=== PATIENT | female | born 1975 | race Caucasian/White ===

== ENCOUNTER 2017-01-09 14:09 | Inpatient (IN) | payer BC, OTHER ==
[2017-01-09 14:18] VITALS: BMI 26.5
--- NOTE | 2017-01-09 15:01 | PDOC ---
History of Present Illness - General Chief Complaint: SIRS, Suspected/Possible Stated Complaint: ABD PAIN Time Seen by Provider: 01/09/17 14:33 History Source: Patient - History of Present Illness Initial Comments: 01/09/17 14:59 Patient is a 41 y.o. female with a PMH of PUD (H. pylori) who presents from her [employer]'s office where she was scheduled to have an endoscopy following concern for a fall. Patient states she woke up this morning at 4:45 a.m. and felt diaphoretic. Patient remembers going to the bathroom (chronic diarrhea) and she then walking into her hallway and her next memory is waking up in the hallway on the ground face down approximately 15 minutes later. Patient denies any pre-syncopal chest pain, shortness of breath, or lightheadedness only endorse the diaphoresis as previously noted. Patient further notes she was NPO from 8 p.m. yesterday and she had a light meal of cereal and milk as she was scheduled for an endoscopy later today. Patient notes dinner is her largest meal of the evening and she normally eats a much more caloric meal at night. Surgical: Cholecystectomy, Tubal Ligation, NKDA PMD: Dr. Hilario Conteh Social: denies cigarettes, denies alcohol, denies recreational drugs Past History - Past Medical History Allergies/Adverse Reactions: Allergies Allergy/AdvReac Type Severity Reaction Status Date / Time No Known Allergies Allergy Unverified 01/09/17 14:14 Home Medications: Ambulatory Orders NK [No Known Home Medication] 01/09/17 Other medical history: denies - Surgical History Abdominal Surgery: Yes (tumbaljeet walterck) Cholecystectomy: Yes - Immunization History Immunization Up to Date: Yes - Suicide/Smoking/Psychosocial Hx Smoking History: Never smoked Hx Alcohol Use: No Drug/Substance Use Hx: No Review of Systems - Review of Systems Constitutional: No: Chills, Fever HEENTM: No: Blurred Vision, Double Vision, Throat Pain Respiratory: No: Cough, Shortness of Breath Cardiac (ROS): No: Chest Pain ABD/GI: Yes: Diarrhea, Abdominal cramping. No: Constipated, Nausea, Vomiting : No: Burning, Dysuria All Other Systems: Reviewed and Negative *Physical Exam - Vital Signs Last Vital Signs Temp Pulse Resp BP Pulse Ox 103 F H 113 H 20 126/75 98 01/09/17 14:14 01/09/17 14:14 01/09/17 14:14 01/09/17 14:14 01/09/17 14:14 - Physical Exam General Appearance: Yes: Nourished, Appropriately Dressed Neck: positive: Supple Respiratory/Chest: positive: Lungs Clear, Normal Breath Sounds Cardiovascular: positive: Regular Rhythm, Regular Rate Gastrointestinal/Abdominal: positive: Tender (B/L LQ tenderness), Soft, Increased Bowel Sounds Musculoskeletal: negative: CVA Tenderness Integumentary: positive: Normal Color, Dry, Warm 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 female with a PMH of PUD (2/2 H. pylori) who presents falling an unwitnessed syncopal episode @ home with head trauma or LOC. Initial DDX is arrhythmia vs. hypoglycemia vs. neurologic. At presentation patient is SIRS 2/4 (Tachycardic 100's, Febrile @ 103). PLAN: 1. ED Adult Sepsis w/u including CBC, CMP, EKG, CXR, UA/UC 2. CT Head Reassess Head CT negative for acute intracranial pathology. As patient continues to c/o of abdominal pain with TTP in B/L lower abdominal quadrants + has h/o PUD, CT abdomen ordered. Patient's GI doctor, Dr. Ye, contacted, states no acute intervention tonight. Will do CT with contrast and evaluate tomorrow. Dr. Ye requests admission under Dr. Coppola. Patient's pain controlled and aware of plan. *DC/Admit/Observation/Transfer Diagnosis at time of Disposition: admitted
[2017-01-09] MEDS ORDERED: ACETAMINOPHEN 500 MG TABLET (FP) PO ONE (15:27)
[2017-01-09 15:48] LABS: BASOPHIL 0.1 % (0-2.0); MCH 31.4 pg (25.7-33.7); MCHC 35.6 g/dl (32.0-36.0); MEAN CELL VOLUME 88.4 fl (80-96); MEAN PLT VOLUME 10.3 fl (7.5-11.1); NEUTROPHILS 88.4 % (42.8-82.8); PLATELET COUNT 139 K/MM3 (134-434)
--- NOTE | 2017-01-09 16:00 | PDOC ---
Attending Attestation - Resident Resident Name: Kristen Samuels - ED Attending Attestation I have performed the following: I have examined & evaluated the patient, The case was reviewed & discussed with the resident, I agree w/resident's findings & plan, Exceptions are as noted - HPI HPI: 01/09/17 15:53 41yo F hx PUD presents from Dr. Ye's office (GI) after she reported a syncopal episode at home. Pt had a scheduled endoscopy today as a part of her work up for 4-5 weeks of chronic diarrhea. At her GI appointment, the staff noticed a bruise to her forehead and she reported that she had a 15 minute syncopal episode at home today. She states she was on her way to the bathroom at 445 and woke up face down on the floor at 5pm. Reports associated diaphoresis. Denies recent CP, palpitations, SOB, fevers, chills, abd pain, N/ V. Pt states she has been NPO since 8pm yesterday for endoscopy today. - Physicial Exam PE: 01/09/17 18:23 GENERAL: Awake, alert, and fully oriented, in no acute distress, febrile to 103 HEAD: No signs of trauma EYES: PERRLA, EOMI, sclera anicteric, conjunctiva clear ENT: Auricles normal inspection, hearing grossly normal, nares patent, oropharynx clear without exudates. dry MM NECK: Normal ROM, supple, no lymphadenopathy, JVD, or masses LUNGS: Breath sounds equal, clear to auscultation bilaterally. No wheezes, and no crackles HEART: tachy 115 but regular, normal S1 and S2, no murmurs, rubs or gallops ABDOMEN: Soft, nontender, normoactive bowel sounds. No guarding, no rebound. No masses EXTREMITIES: Normal range of motion, no edema. No clubbing or cyanosis. No cords, erythema, or tenderness NEUROLOGICAL: Normal speech, cranial nerves intact, negative pronator drift, 5/ 5 strength in all 4 extremities, normal sensation to light touch in all 4 extremities, normal cerebellar exam, normal gait, normal reflexes and tone SKIN: Warm, Dry, normal turgor, no rashes or lesions noted. - Medical Decision Making 01/09/17 18:27 41-year-old female presents with 15 minutes of syncope at home with head strike. Vitals remarkable for temp 103 and tachycardia to 115.Exam with dry MM. Syncope is concerning given a long period of loss of consciousness. Possible causes are hypovolemia versus infection as patient is febrile and tachycardic here versus cardiac in etiology. -labs -IVF -tylenol -CTH -likely admit Heart Score/ECG Review #1 01/09/17 18:15 Twelve-lead EKG was performed and reviewed by me. Normal sinus rhythm, rate 82, normal axis and intervals. No ST elevations. T wave flattening in lead 3
[2017-01-09 16:04] LABS: ALBUMIN 3.9 g/dl (3.4-5.0); ANION GAP 11 (8-16); BILIRUBIN,TOTAL 1.3 mg/dL (0.2-1.0); CALCIUM 8.3 mg/dL (8.5-10.1); CO2 25 mmol/L (21-32); CREATININE 0.6 mg/dL (0.55-1.02); GLUCOSE,RANDOM 117 mg/dL (74-106); SGOT/AST 109 U/L (15-37); SGPT/ALT 88 U/L (12-78); TOT PROT 7.3 g/dl (6.4-8.2)
[2017-01-09 16:05] LABS: ALK PHOS 108 U/L (45-117); CPK 58 IU/L (26-192)
[2017-01-09 16:06] LABS: TROPONIN I < 0.02 ng/ml (0.00-0.05)
[2017-01-09 16:12] LABS: INR 1.19 (0.82-1.09); PROTHROMBIN TIME (PATIENT) 13.5 SEC (9.98-11.88)
[2017-01-09 16:15] LABS: ACTIVATED PTT 26.4 SECONDS (26.9-34.4)
[2017-01-09 16:23] LABS: VENOUS PH 7.44 (7.32-7.42)
[2017-01-09] MEDS ORDERED: POTASSIUM CHLORIDE TABS 20 MEQ TABLET.ER (FP) PO ONE ×2 (16:23→16:29)
[2017-01-09] MEDS ORDERED: SODIUM CHLORIDE 0.9% 1000 ML INFUS.BAG IV ONE (18:27)
[2017-01-09 20:58] LABS: URINE APPEARANCE CLEAR; URINE BILIRUBIN NEGATIVE (NEGATIVE); URINE BLOOD NEGATIVE (NEGATIVE); URINE COLOR LTYELLOW; URINE GLUCOSE (UA) NEGATIVE (NEGATIVE); URINE KETONE 2+ (NEGATIVE); URINE NITRITE NEGATIVE (NEGATIVE); URINE PROTEIN NEGATIVE (NEGATIVE); URINE UROBILINOGEN NEGATIVE mg/dL (0.2-1.0)
[2017-01-09] MEDS ORDERED: ACETAMINOPHEN 1000 MG/100 ML VIAL (NON FORMULARY) IVPB ONE (22:18)
[2017-01-09] MEDS ORDERED: morphine CARPU-JECT 2 MG/1 ML DISP.SYRIN IM ONE (22:19)
[2017-01-09] MEDS ORDERED: morphine CARPU-JECT 2 MG/1 ML DISP.SYRIN IVPUSH ONE (22:25)
[2017-01-09] MEDS ORDERED: morphine CARPU-JECT 2 MG/1 ML DISP.SYRIN ONE (22:28)
[2017-01-10] MEDS ORDERED: ACETAMINOPHEN 325 MG TABLET (FP) ONE (00:03)
[2017-01-10] MEDS ORDERED: ACETAMINOPHEN 325 MG TABLET (FP) PO ONE (00:09)
[2017-01-10] MEDS ORDERED: morphine CARPU-JECT 2 MG/1 ML DISP.SYRIN IVPB PRN (02:22)
[2017-01-10] MEDS ORDERED: LEVOFLOXACIN 500 MG IVPB 100 ML IVPB ONE (02:30)
[2017-01-10] MEDS: D5-1/2NS+20 MEQ KCL - 1,000 ML IV SCH ×2 (02:40→16:30)
[2017-01-10 08:02] LABS: MCH 30.9 pg (25.7-33.7); MEAN CELL VOLUME 88.3 fl (80-96); MEAN PLT VOLUME 9.8 fl (7.5-11.1); PLATELET COUNT 103 K/MM3 (134-434); RDW 12.9 % (11.6-15.6); WHITE BLOOD COUNT 7.1 K/mm3 (4.0-10.0)
[2017-01-10 08:47] LABS: ALBUMIN 3.3 g/dl (3.4-5.0); ANION GAP 7 (8-16); CALCIUM 7.8 mg/dL (8.5-10.1); CO2 29 mmol/L (21-32); CREATININE 0.5 mg/dL (0.55-1.02); GLUCOSE,RANDOM 117 mg/dL (74-106); SGOT/AST 77 U/L (15-37); SGPT/ALT 86 U/L (12-78)
[2017-01-10 08:51] LABS: ALK PHOS 90 U/L (45-117); BILIRUBIN,TOTAL 1.2 mg/dL (0.2-1.0); TOT PROT 6.4 g/dl (6.4-8.2)
[2017-01-10 11:14] LABS: URINE LEUK ESTERASE Negative (NEGATIVE)
[2017-01-10] MEDS: KCL 10 MEQ IVPB 100 ML IVPB SCH ×2 (12:29→14:00)
--- NOTE | 2017-01-10 12:47 | EKG ---
Test Reason : Blood Pressure : / mmHG Vent. Rate : 082 BPM Atrial Rate : 082 BPM P-R Int : 160 ms QRS Dur : 086 ms QT Int : 396 ms P-R-T Axes : 048 052 032 degrees QTc Int : 462 ms NORMAL SINUS RHYTHM NORMAL ECG NO PREVIOUS ECGS AVAILABLE Confirmed by ROLAN MAJOR MD ([id number]) on 01/10/2017 12:46:58 PM Referred By: Confirmed By:ROLAN MAJOR MD
--- NOTE | 2017-01-10 13:27 | RAPID ---
Physical Examination Vital Signs: Vital Signs Temperature 98.6 F 01/10/17 09:23 Pulse Rate 75 01/10/17 09:23 Respiratory Rate 18 01/10/17 09:23 Blood Pressure 107/62 01/10/17 09:23 O2 Sat by Pulse Oximetry (%) 99 01/10/17 10:00 Findings/Remarks: Was called to the bed side by Cydney ann. Patient was found in bed complaining of new onset "weird feelings in my body" as per nurse, patient was on her way back from the bathroom when she began to complain of generalized weakness and slurred speech. Dr. Villalobos at bedside. Patient was found to have no focal neurological deficits. Strength 5/5 in all 4 limbs. Questionable pronator drift on the right. -NIH stroke scale score of 1. -STAT non-con CT of the head ordered and returned negative. -Will order MRI brain w/o contrast. -STAT BMP, magnesium ordered as the patient had electrolyte disturbances this AM -Will follow up stat labs and CT. Constitutional: Yes: Well Nourished, Anxious, Mild Distress Eyes: Yes: Conjunctiva Clear, EOM Intact HENT: Yes: Atraumatic, Normocephalic Neck: Yes: Supple, Trachea Midline Cardiovascular: Yes: Regular Rate and Rhythm, S1, S2. No: JVD, Gallop, Murmur, Rub Respiratory: Yes: Regular, CTA Bilaterally. No: Accessory Muscle Use Neurological: Yes: Alert, Oriented, Cran Nerves II-XII Intact. No: Aphasia, Dysarthria, Facial Droop, Loss of Sensation ...Motor Strength: LUE (5/5), LLE (5/5), RUE (5/5), RLE (5/5) Labs: CBC, BMP 01/10/17 06:00 01/10/17 06:00 Suspected CVA - Suspected CVA Exam Time (Code Ann Time): 01:15 CT Stroke ordered: Yes Stat "Cydney Ann" Consult to Neurology called: Yes Last Known Well (Date): 01/10/17 Last Known Well (Time): 01:00 Symptom Discovery (Date): 01/10/17 Symptom Discovery (Time): 01:10
--- NOTE | 2017-01-10 13:36 | HP ---
Admitting History and Physical - Primary Care Physician PCP: Hilario Rodgers - Admission History of Present Illness: Patient is a 41 y.o. female with a PMH of PUD (H. pylori) who presents from her Pharmacometrician's office -- Dr. Howell--where she was scheduled to have an endoscopy following concern for a fall. Patient states she woke up this morning at 4:45 a.m. and felt diaphoretic. Patient remembers going to the bathroom (chronic diarrhea) and she then walking into her hallway and her next memory is waking up in the hallway on the ground face down approximately 15 minutes later. Patient denies any pre-syncopal chest pain, shortness of breath , or lightheadedness only endorse the diaphoresis as previously noted. Patient further notes she was NPO from 8 p.m. yesterday and she had a light meal of cereal and milk as she was scheduled for an endoscopy later today. Patient notes dinner is her largest meal of the evening and she normally eats a much more caloric meal at night. Surgical: Cholecystectomy, Tubal Ligation, NKDA PMD: Dr. Hilario Conteh Social: denies cigarettes, denies alcohol, denies recreational drugs pt admitted to floor pt had fever of 103 last night -- given levaquin x 1 dose pt also had rapid response earlier today - after starting kcl pt feels better now denies cp/sob +ve diarhea +ve abd pain anxiety + denies urinary burning History Source: Patient Limitations to Obtaining History: No Limitations - Past Medical History ...: No - Smoking History Smoking history: Never smoked - Alcohol/Substance Use Hx Alcohol Use: No Home Medications - Allergies Allergies/Adverse Reactions: Allergies Allergy/AdvReac Type Severity Reaction Status Date / Time No Known Allergies Allergy Unverified 01/09/17 14:14 - Home Medications Home Medications: Ambulatory Orders NK [No Known Home Medication] 01/09/17 Family Disease History - Family Disease History Family History: Unremarkable Review of Systems Findings/Remarks: see [place] Physical Examination Vital Signs: Vital Signs Temperature 98.6 F 01/10/17 09:23 Pulse Rate 75 01/10/17 09:23 Respiratory Rate 18 01/10/17 09:23 Blood Pressure 107/62 01/10/17 09:23 O2 Sat by Pulse Oximetry (%) 99 01/10/17 10:00 Constitutional: Yes: No Distress, Calm Eyes: Yes: WNL, Conjunctiva Clear HENT: Yes: WNL Neck: Yes: Supple Cardiovascular: Yes: Regular Rate and Rhythm Respiratory: Yes: CTA Bilaterally Gastrointestinal: Yes: Soft, Tenderness (mild diffuse. no r/r bs +) Labs: CBC, BMP 01/10/17 06:00 01/10/17 06:00 Imaging - Results Chest X-ray: Report Reviewed Cat Scan: Report Reviewed EKG: Report Reviewed Problem List - Problems (1) Abdominal pain Code(s): R10.9 - UNSPECIFIED ABDOMINAL PAIN (2) Colitis Code(s): K52.9 - NONINFECTIVE GASTROENTERITIS AND COLITIS, UNSPECIFIED (3) Need for rapid response team assessment Code(s): [id number] - (4) Acute anxiety Code(s): F41.9 - ANXIETY DISORDER, UNSPECIFIED (5) Diarrhea Code(s): R19.7 - DIARRHEA, UNSPECIFIED (6) Thrombocytopenia Code(s): D69.6 - THROMBOCYTOPENIA, UNSPECIFIED Assessment/Plan clinically stable discussed with Dr. Howell-- he will evaluate and decide if to continue abx continue present care scd hold heparin for dvt prophylaxis- as platelets are low. monitor . will follow
--- NOTE | 2017-01-10 13:49 | CONSULT ---
Consult - text type - Consultation Consultation Note: Neurology History of Present Illness Patient is a 41 y.o. female with a PMH of PUD (H. pylori) who presents from her Clinical Trial Specialist's office where she was scheduled to have an endoscopy following concern for a fall. Patient states she woke up morning of admission at 4:45 a.m. and felt diaphoretic. Patient remembers going to the bathroom ( chronic diarrhea) and admitted for evaluation. At approximately 1:15 over head page for code bartlett/stroke emegency and went to bedside immediately along with rapid response team. Reportedly had bed complaining was on her way back from the bathroom when she began to complain of generalized weakness and slurred speech. During my evaluation was feeling "weird feelings in my body". Patient was found to have no focal neurological deficits. Strength 5/5 in all 4 limbs. Questionable Pronator drift on the right. Did not appreciate slurred speech. Patient went for emergent CT head negative. Results reviewed with patient, no acute changes. Not given TPA as low NIHSS also no focal deficits. MRI brain ordered, symptoms resolving and patient at baseline. Believed to be possibly metabolic and medical management occuring. Spoke with PCP and hospitalist. All in agreement. Surgical: Cholecystectomy, Tubal Ligation, NKDA PMD: Dr. Hilario Conteh Social: denies cigarettes, denies alcohol, denies recreational drugs Past History - Past Medical History Allergies/Adverse Reactions: Allergies Allergy/AdvReac Type Severity Reaction Status Date / Time No Known Allergies Allergy Unverified 01/09/17 14:14 Active Medications Potassium Chloride/Dextrose/Sod Cl (D5-1/2ns+20 Meq Kcl -) 1,000 mls @ 100 mls/ hr IV ASDIR NIEVES Last Admin: 01/10/17 02:40 Dose: 100 mls/hr Potassium Chloride (Potassium Chloride 10 Meq Premix Ivpb -) 100 mls @ 100 mls/ hr IVPB Q60M [facility] Stop: 01/10/17 14:14 Last Admin: 01/10/17 12:29 Dose: 100 mls/hr Morphine Sulfate (Morphine Injection -) 1 mg IVPB Q4H PRN PRN Reason: PAIN Last Admin: 01/10/17 08:19 Dose: 1 mg Other medical history: denies - Surgical History Abdominal Surgery: Yes (tummy tuck) Cholecystectomy: Yes - Immunization History Immunization Up to Date: Yes - Suicide/Smoking/Psychosocial Hx Smoking History: Never smoked Hx Alcohol Use: No Drug/Substance Use Hx: No *Physical Exam - Vital Signs Last Vital Signs Temp Pulse Resp BP Pulse Ox 103 F H 113 H 20 126/75 98 01/09/17 14:14 01/09/17 14:14 01/09/17 14:14 01/09/17 14:14 01/09/17 14:14 AWake, alert, responsive RRR, no murmur Lungs clear Abd soft, slightly tender CN intact No slurred speech Sensory intact Motor 5/5 aside from ? drift of RUE Gait deferred CBCD WBC 7.1 K/mm3 (4.0-10.0) 01/10/17 06:00 RBC 4.10 M/mm3 (3.60-5.2) 01/10/17 06:00 Hgb 12.7 GM/dL (10.7-15.3) 01/10/17 06:00 Hct 36.2 % (32.4-45.2) 01/10/17 06:00 MCV 88.3 fl (80-96) 01/10/17 06:00 MCHC 35.0 g/dl (32.0-36.0) 01/10/17 06:00 RDW 12.9 % (11.6-15.6) 01/10/17 06:00 Plt Count 103 K/MM3 (134-434) L D 01/10/17 06:00 MPV 9.8 fl (7.5-11.1) 01/10/17 06:00 CMP Sodium 138 mmol/L (136-145) 01/10/17 06:00 Potassium 3.1 mmol/L (3.5-5.1) L 01/10/17 06:00 Chloride 102 mmol/L (98-107) 01/10/17 06:00 Carbon Dioxide 29 mmol/L (21-32) 01/10/17 06:00 Anion Gap 7 (8-16) L 01/10/17 06:00 BUN 5 mg/dL (7-18) L D 01/10/17 06:00 Creatinine 0.5 mg/dL (0.55-1.02) L 01/10/17 06:00 Creat Clearance w eGFR > 60 (>60) 01/10/17 06:00 Calcium 7.8 mg/dL (8.5-10.1) L 01/10/17 06:00 Total Bilirubin 1.2 mg/dL (0.2-1.0) H 01/10/17 06:00 AST 77 U/L (15-37) H D 01/10/17 06:00 ALT 86 U/L (12-78) H 01/10/17 06:00 Alkaline Phosphatase 90 U/L (45-117) 01/10/17 06:00 Total Protein 6.4 g/dl (6.4-8.2) 01/10/17 06:00 Albumin 3.3 g/dl (3.4-5.0) L 01/10/17 06:00 - RADIOLOGY CT head negative X 2 Medical Decision Making 41 y.o. female with a PMH of PUD (H. pylori) who presents from her Clinical Trial Specialist's office where she was scheduled to have an endoscopy following concern for a fall. Patient states she woke up morning of admission at 4:45 a.m. and felt diaphoretic. Patient remembers going to the bathroom ( chronic diarrhea) and admitted for evaluation. At approximately 1:15 over head page for code bartlett/stroke emegency and went to bedside immediately along with rapid response team. Reportedly had bed complaining was on her way back from the bathroom when she began to complain of generalized weakness and slurred speech. During my evaluation was feeling "weird feelings in my body". Patient was found to have no focal neurological deficits. Strength 5/5 in all 4 limbs. Questionable Pronator drift on the right. Did not appreciate slurred speech. Patient went for emergent CT head negative. Results reviewed with patient, no acute changes. MRI brain ordered, symptoms resolving and patient at baseline. Believed to be possibly metabolic and medical management occurring. Spoke with PCP and hospitalist. All in agreement. Critical care time 40 mins
[2017-01-10 15:16] LABS: ANION GAP 6 (8-16); CALCIUM 7.9 mg/dL (8.5-10.1); CO2 27 mmol/L (21-32); CREATININE 0.5 mg/dL (0.55-1.02); GLUCOSE,RANDOM 93 mg/dL (74-106); MAGNESIUM 2.3 mg/dL (1.8-2.4)
--- NOTE | 2017-01-10 17:00 | CON.GI ---
Consult Consult Specialty:: GI Referred by:: Dr Coppola Reason for Consultation:: colitis - History of Present Illness Chief Complaint: syncope History of Present Illness: 41 F with no PMH seen as opt with UGI complaints, scheduled for EGD. Came to office for procedure yesterday and was noted to have ecchymosis over R eye with orbital ecchymosis as well. She told me that she had lower abdominal pain that morning and went to the bathroom where she states she had diarrhea and vomiting. up9on arising she had a syncopal episode which lasted a few minutes. She states she "woke up on the floor next to her dog." Curently comfortable. States eating precipitates the pain. CT done without contrast of little value. Suggests mild thickening of the entire colon. Earlier today she was given a potassium infusion and developed severe hand cramping and facial and body numbness prompting a codee ca. She had CT that was negative, neuro eval negative and is now going for MRI of brain. - History Source History Provided By: Patient, Medical Record Limitations to Obtaining History: No Limitations - Past Medical History ...: No - Alcohol/Substance Use Hx Alcohol Use: No - Smoking History Smoking history: Never smoked Home Medications - Allergies Allergies/Adverse Reactions: Allergies Allergy/AdvReac Type Severity Reaction Status Date / Time No Known Allergies Allergy Unverified 01/09/17 14:14 - Home Medications Home Medications: Ambulatory Orders NK [No Known Home Medication] 01/09/17 Physical Exam-GI Vital Signs: Vital Signs Temperature 98.9 F 01/10/17 15:32 Pulse Rate 82 01/10/17 15:32 Respiratory Rate 18 01/10/17 15:32 Blood Pressure 118/69 01/10/17 15:32 O2 Sat by Pulse Oximetry (%) 99 01/10/17 10:00 Constitutional: Yes: Well Nourished, No Distress, Anxious Cardiovascular: Yes: Regular Rate and Rhythm Respiratory: Yes: Regular, CTA Bilaterally Gastrointestinal Inspection: Yes: WNL ...Auscultate: Yes: Normoactive Bowel Sounds ...Palpate: Yes: Soft, Tenderness (mild, mid-abdominal) ...Percussion: Yes: Dullness Neurological: Yes: WNL, Oriented. No: Confusion, Loss of Sensation, Numbness, Weakness (No focal findings) Labs: CBC, BMP 01/10/17 06:00 01/10/17 14:25 INR, PTT INR 1.19 (0.82-1.09) H 01/09/17 15:25 Hepatic Panel Total Bilirubin 1.2 mg/dL (0.2-1.0) H 01/10/17 06:00 AST 77 U/L (15-37) H D 01/10/17 06:00 ALT 86 U/L (12-78) H 01/10/17 06:00 Alkaline Phosphatase 90 U/L (45-117) 01/10/17 06:00 Albumin 3.3 g/dl (3.4-5.0) L 01/10/17 06:00 Imaging - Results Cat Scan: Report Reviewed (diffuse thickening of entire colon with no fluid, stranding or) Assessment/Plan Patient with unusual constellation of symptoms. When seen as opt, she was having intermittent constipation. Fever on admission but no leukocytosis. However, L shift and now thrombocytopenia. Rec: CTA to r/o ischemic issue. She describes intestinal angina. Check sed rate, CPK, myoglobin and JAYMIE. ? vasculitis muscle cramps likely secondary to low K. Check ionized Ca as hand and facial muscle contractions suggest low Ca
[2017-01-10] MEDS ORDERED: ACETAMINOPHEN 325 MG TABLET (FP) PO PRN (17:04)
[2017-01-10] MEDS ORDERED: morphine CARPU-JECT 2 MG/1 ML DISP.SYRIN IVPUSH PRN (17:14)
[2017-01-10] MEDS ORDERED: LEVOFLOXACIN 500 MG IVPB 100 ML IVPB SCH (17:15)
[2017-01-11 08:26] LABS: BASOPHIL 0.4 % (0-2.0); EOSINOPHIL 1.6 % (0-4.5); MCH 30.5 pg (25.7-33.7); MCHC 34.4 g/dl (32.0-36.0); MEAN CELL VOLUME 88.9 fl (80-96); MEAN PLT VOLUME 10.3 fl (7.5-11.1); NEUTROPHILS 60.4 % (42.8-82.8); PLATELET COUNT 132 K/MM3 (134-434); WHITE BLOOD COUNT 4.6 K/mm3 (4.0-10.0)
[2017-01-11 08:59] LABS: ALBUMIN 3.2 g/dl (3.4-5.0); ANION GAP 7 (8-16); BILIRUBIN,TOTAL 0.6 mg/dL (0.2-1.0); CALCIUM 7.9 mg/dL (8.5-10.1); CO2 27 mmol/L (21-32); CREATININE 0.5 mg/dL (0.55-1.02); GLUCOSE,RANDOM 110 mg/dL (74-106); SGOT/AST 38 U/L (15-37); SGPT/ALT 62 U/L (12-78); TOT PROT 6.3 g/dl (6.4-8.2)
[2017-01-11 09:00] LABS: ALK PHOS 83 U/L (45-117)
--- NOTE | 2017-01-11 12:47 | PN ---
Progress Note (short form) - Note Progress Note: feels better diarrhea persists abd discomfort + afebrile comfortable gi consult noted/ appreciated Vital Signs Temp 98.1 F 01/11/17 09:36 Pulse 67 01/11/17 09:36 Resp 18 01/11/17 09:36 BP 110/66 01/11/17 09:36 Pulse Ox 99 01/11/17 10:00 Intake & Output 01/10/17 01/11/17 01/11/17 23:59 11:59 23:59 Intake Total 1100 1100 Balance 1100 1100 Intake: IV 1000 1100 D5-1/2Ns+20 Meq KCl - 1, 1000 1100 000 ml @ 100 mls/hr IV ASDIR NIEVES Rx#:[id number] IVPB 100 Oral 0 0 Other: Voiding Method Toilet Toilet # Unmeasured Voids Void 3 2 Bowel Movement Yes No # Bowel Movements 3 3 Active Medications Acetaminophen (Tylenol -) 650 mg PO Q6H PRN PRN Reason: FEVER OR PAIN Last Admin: 01/10/17 17:51 Dose: 650 mg Levofloxacin (Levaquin 500 Mg Premixed Ivpb -) 100 mls @ 100 mls/hr IVPB ONCE NIEVES Stop: 01/11/17 17:14 Last Admin: 01/10/17 17:51 Dose: 100 mls/hr Potassium Chloride/Dextrose/Sod Cl (D5-1/2ns+20 Meq Kcl -) 1,000 mls @ 100 mls/ hr IV ASDIR NIEVES Morphine Sulfate (Morphine Injection -) 1 mg IVPB Q4H PRN PRN Reason: PAIN Last Admin: 01/10/17 08:19 Dose: 1 mg Morphine Sulfate (Morphine Injection -) 1 mg IVPUSH Q4H PRN PRN Reason: PAIN CBC, BMP 01/11/17 07:40 01/11/17 07:40 Microbiology 01/09/17 15:25 Urine Culture - Final Urine - Urine Clean Catch NO GROWTH OBTAINED 01/09/17 14:49 Blood Culture - Preliminary Blood - Peripheral Venous NO GROWTH OBTAINED AFTER 24 HOURS, INCUBATION TO CONTINUE FOR 4 DAYS. 01/09/17 14:49 Blood Culture - Preliminary Blood - Peripheral Venous NO GROWTH OBTAINED AFTER 24 HOURS, INCUBATION TO CONTINUE FOR 4 DAYS. 01/10/17 13:00 Clostridium difficile Antigen (HUMA) - Final Stool Clostridium difficile Toxin Assay - Final Physical Examination Constitutional: Yes: No Distress, Calm Eyes: Yes: WNL, Conjunctiva Clear HENT: Yes: WNL Neck: Yes: Supple Cardiovascular: Yes: Regular Rate and Rhythm Respiratory: Yes: CTA Bilaterally Gastrointestinal: Yes: Soft, Tenderness (mild diffuse. no r/r bs +)-- better Problem List - Problems (1) Abdominal pain Code(s): R10.9 - UNSPECIFIED ABDOMINAL PAIN (2) Colitis Code(s): K52.9 - NONINFECTIVE GASTROENTERITIS AND COLITIS, UNSPECIFIED (3) Need for rapid response team assessment Code(s): [id number] - (4) Acute anxiety Code(s): F41.9 - ANXIETY DISORDER, UNSPECIFIED (5) Diarrhea Code(s): R19.7 - DIARRHEA, UNSPECIFIED Assessment/Plan clinically stable/ better discussed with Dr. Howell-again today - plan for sigmoidoscopy tomorrow cta -ve except thickened colon. observe off abx continue present care scd platlets better monitor . will follow
--- NOTE | 2017-01-11 14:34 | PN ---
GI Progress Note Subjective: Patient now with colitislike symptoms. Abdominal pain just prior to BM with tenesmus, and passing small liquid BM. CTA reviewed-no vascular compromise but again, thickened colon throughout. - Objective Vital Signs: Vital Signs Temperature 98.1 F 01/11/17 09:36 Pulse Rate 67 01/11/17 09:36 Respiratory Rate 18 01/11/17 09:36 Blood Pressure 110/66 01/11/17 09:36 O2 Sat by Pulse Oximetry (%) 99 01/11/17 10:00 Constitutional: Well Nourished HENT: Yes: Normocephalic Neck: Yes: Supple Cardiovascular: Yes: Regular Rate and Rhythm Respiratory: Yes: CTA Bilaterally Gastrointestinal Inspection: Yes: WNL ...Auscultate: Yes: Normoactive Bowel Sounds ...Palpate: Yes: Soft, Tenderness (L/RLQ primarily) ...Percussion: Yes: Dullness Labs: CBC, BMP 01/11/17 07:40 01/11/17 07:40 INR, PTT INR 1.19 (0.82-1.09) H 01/09/17 15:25 - ....Imaging Cat Scan: Report Reviewed (No vascular issue. Colitis-like picture) Assessment/Plan Patient with unusual constellation of symptoms. When seen as opt, she was having intermittent constipation. Fever on admission but no leukocytosis. However, L shift and now thrombocytopenia. Rec: CTA to r/o ischemic issue negative CRP 7.8 muscle cramps likely secondary to low K. ionized Ca P CPK normal Flex sig tomorrow-time to be determined.
[2017-01-11] MEDS: D5-1/2NS+20 MEQ KCL - 1,000 ML IV SCH (17:22)
[2017-01-12] MEDS: D5-1/2NS+20 MEQ KCL - 1,000 ML IV SCH ×2 (07:15→18:45)
[2017-01-12] MEDS ORDERED: LIDOCAINE HCL/PF 2% SDV 5ML VIAL ONE (08:54)
[2017-01-12] MEDS ORDERED: PROPOFOL 20 ML ONE ×2 (08:54)
--- NOTE | 2017-01-12 09:45 | PN ---
Progress Note (short form) - Note Progress Note: ADDENDUM: Mild patchy colitis throughout the colon. Scope passed to the ascending colon. Resume diet-low residue Await biopsy results FF
--- NOTE | 2017-01-12 10:17 | PN ---
Progress Note (short form) - Note Progress Note: Neurology History of Present Illness Patient is a 41 y.o. female with a PMH of PUD (H. pylori) who presents from her [employer]'s office where she was scheduled to have an endoscopy following concern for a fall. Patient states she woke up morning of admission at 4:45 a.m. and felt diaphoretic. Patient remembers going to the bathroom ( chronic diarrhea) and admitted for evaluation. On thursday, approximately 1: 15pm over head page for code bartlett/stroke emegency and went to bedside immediately along with rapid response team. Reportedly had bed complaining was on her way back from the bathroom when she began to complain of generalized weakness and slurred speech. During my evaluation was feeling "weird feelings in my body". Patient was found to have no focal neurological deficits. Strength 5/5 in all 4 limbs. Questionable Pronator drift on the right. Did not appreciate slurred speech. Patient went for emergent CT head negative. Not given TPA as low NIHSS also no focal deficits. Symptoms resolved. MRI brain completed and reviewed and without acute changes. Believed to be possibly metabolic and medical management occuring. Active Medications Acetaminophen (Tylenol -) 650 mg PO Q6H PRN PRN Reason: FEVER OR PAIN Last Admin: 01/10/17 17:51 Dose: 650 mg Potassium Chloride/Dextrose/Sod Cl (D5-1/2ns+20 Meq Kcl -) 1,000 mls @ 100 mls/ hr IV ASDIR NIEVES Last Admin: 01/12/17 07:15 Dose: Not Given Morphine Sulfate (Morphine Injection -) 1 mg IVPB Q4H PRN PRN Reason: PAIN Last Admin: 01/10/17 08:19 Dose: 1 mg Morphine Sulfate (Morphine Injection -) 1 mg IVPUSH Q4H PRN PRN Reason: PAIN *Physical Exam Vital Signs Period Temp Pulse Resp BP Sys/Al Pulse Ox Last 24 Hr 97.7 F-98.4 F 61-68 18-20 89-117/51-66 98-99 AWake, alert, responsive RRR, no murmur Lungs clear Abd soft, slightly tender CN intact No slurred speech Sensory intact Motor 5/5 aside from ? drift of RUE Gait deferred CBCD WBC 4.6 K/mm3 (4.0-10.0) D 01/11/17 07:40 RBC 4.07 M/mm3 (3.60-5.2) 01/11/17 07:40 Hgb 12.4 GM/dL (10.7-15.3) 01/11/17 07:40 Hct 36.1 % (32.4-45.2) 01/11/17 07:40 MCV 88.9 fl (80-96) 01/11/17 07:40 MCHC 34.4 g/dl (32.0-36.0) 01/11/17 07:40 RDW 13.0 % (11.6-15.6) 01/11/17 07:40 Plt Count 132 K/MM3 (134-434) L D 01/11/17 07:40 MPV 10.3 fl (7.5-11.1) 01/11/17 07:40 CMP Sodium 140 mmol/L (136-145) 01/11/17 07:40 Potassium 3.4 mmol/L (3.5-5.1) L 01/11/17 07:40 Chloride 106 mmol/L (98-107) 01/11/17 07:40 Carbon Dioxide 27 mmol/L (21-32) 01/11/17 07:40 Anion Gap 7 (8-16) L 01/11/17 07:40 BUN 4 mg/dL (7-18) L 01/11/17 07:40 Creatinine 0.5 mg/dL (0.55-1.02) L 01/11/17 07:40 Creat Clearance w eGFR > 60 (>60) 01/11/17 07:40 Calcium 7.9 mg/dL (8.5-10.1) L 01/11/17 07:40 Total Bilirubin 0.6 mg/dL (0.2-1.0) D 01/11/17 07:40 AST 38 U/L (15-37) H D 01/11/17 07:40 ALT 62 U/L (12-78) D 01/11/17 07:40 Alkaline Phosphatase 83 U/L (45-117) 01/11/17 07:40 Total Protein 6.3 g/dl (6.4-8.2) L 01/11/17 07:40 Albumin 3.2 g/dl (3.4-5.0) L 01/11/17 07:40 - RADIOLOGY CT head negative X 2 Medical Decision Making 41 y.o. female with a PMH of PUD (H. pylori) who presents from her [employer]'s office where she was scheduled to have an endoscopy following concern for a fall. On thursday, approximately 1:15pm over head page for code bartlett/stroke emegency and went to bedside immediately along with rapid response team. Reportedly had bed complaining was on her way back from the bathroom when she began to complain of generalized weakness and slurred speech. During my evaluation was feeling "weird feelings in my body". Patient was found to have no focal neurological deficits. Strength 5/5 in all 4 limbs. Questionable Pronator drift on the right. Did not appreciate slurred speech. Patient went for emergent CT head negative. Not given TPA as low NIHSS also no focal deficits. Symptoms resolved. MRI brain completed and reviewed and without acute changes. Believed to be possibly metabolic and medical management occuring. No further neurologic recommendations at this time.
--- NOTE | 2017-01-12 12:28 | PN ---
Progress Note (short form) - Note Progress Note: feels better diarrhea better s/p colonoscopy today-- findings noted -- patchy colitis. afebrile Vital Signs Temp 98.3 F 01/12/17 11:00 Pulse 68 01/12/17 11:00 Resp 18 01/12/17 11:00 BP 98/58 01/12/17 11:00 Pulse Ox 100 01/12/17 10:24 Intake & Output 01/11/17 01/12/17 01/12/17 23:59 11:59 23:59 Intake Total 1200 1600 Balance 1200 1600 Intake: IV 1200 1600 D5-1/2Ns+20 Meq KCl - 1, 1200 1200 000 ml @ 100 mls/hr IV ASDIR NIEVES Rx#:[id number] Oral 0 0 Other: Voiding Method Toilet Toilet # Unmeasured Voids Void 3 2 Bowel Movement Yes No # Bowel Movements 1 Active Medications Acetaminophen (Tylenol -) 650 mg PO Q6H PRN PRN Reason: FEVER OR PAIN Last Admin: 01/10/17 17:51 Dose: 650 mg Levofloxacin (Levaquin 500 Mg Premixed Ivpb -) 100 mls @ 100 mls/hr IVPB ONCE NIEVES Stop: 01/11/17 17:14 Last Admin: 01/10/17 17:51 Dose: 100 mls/hr Potassium Chloride/Dextrose/Sod Cl (D5-1/2ns+20 Meq Kcl -) 1,000 mls @ 100 mls/ hr IV ASDIR NIEVES Morphine Sulfate (Morphine Injection -) 1 mg IVPB Q4H PRN PRN Reason: PAIN Last Admin: 01/10/17 08:19 Dose: 1 mg Morphine Sulfate (Morphine Injection -) 1 mg IVPUSH Q4H PRN PRN Reason: PAIN CBC, BMP 01/11/17 07:40 01/11/17 07:40 Microbiology 01/09/17 15:25 Urine Culture - Final Urine - Urine Clean Catch NO GROWTH OBTAINED 01/09/17 14:49 Blood Culture - Preliminary Blood - Peripheral Venous NO GROWTH OBTAINED AFTER 24 HOURS, INCUBATION TO CONTINUE FOR 4 DAYS. 01/09/17 14:49 Blood Culture - Preliminary Blood - Peripheral Venous NO GROWTH OBTAINED AFTER 24 HOURS, INCUBATION TO CONTINUE FOR 4 DAYS. 01/10/17 13:00 Clostridium difficile Antigen (HUMA) - Final Stool Clostridium difficile Toxin Assay - Final Physical Examination Constitutional: Yes: No Distress, Calm Eyes: Yes: WNL, Conjunctiva Clear HENT: Yes: WNL Neck: Yes: Supple Cardiovascular: Yes: Regular Rate and Rhythm Respiratory: Yes: CTA Bilaterally Gastrointestinal: Yes: Soft, Tenderness (mild diffuse. no r/r bs +)-- better Problem List - Problems (1) Abdominal pain Code(s): R10.9 - UNSPECIFIED ABDOMINAL PAIN (2) Colitis Code(s): K52.9 - NONINFECTIVE GASTROENTERITIS AND COLITIS, UNSPECIFIED (3) Need for rapid response team assessment Code(s): MMP2712 - (4) Acute anxiety Code(s): F41.9 - ANXIETY DISORDER, UNSPECIFIED (5) Diarrhea Code(s): R19.7 - DIARRHEA, UNSPECIFIED Assessment/Plan clinically stable/ better pt able to eat only little . will monitor today if better and stable- will consider d/c in am. discussed with nursing staff. Problem List - Problems (1) Abdominal pain Code(s): R10.9 - UNSPECIFIED ABDOMINAL PAIN (2) Colitis Code(s): K52.9 - NONINFECTIVE GASTROENTERITIS AND COLITIS, UNSPECIFIED (3) Need for rapid response team assessment Code(s): QIN6034 - (4) Acute anxiety Code(s): F41.9 - ANXIETY DISORDER, UNSPECIFIED (5) Diarrhea Code(s): R19.7 - DIARRHEA, UNSPECIFIED (6) Thrombocytopenia Code(s): D69.6 - THROMBOCYTOPENIA, UNSPECIFIED
[2017-01-13 00:16] LABS: MYOGLOBIN SERUM 24 ng/mL (25-58)
[2017-01-13] MEDS: D5-1/2NS+20 MEQ KCL - 1,000 ML IV SCH ×2 (03:11→11:53)
[2017-01-13 07:31] LABS: BASOPHIL 0.3 % (0-2.0); EOSINOPHIL 1.6 % (0-4.5); MCH 30.7 pg (25.7-33.7); MCHC 34.7 g/dl (32.0-36.0); MEAN CELL VOLUME 88.3 fl (80-96); MEAN PLT VOLUME 9.5 fl (7.5-11.1); NEUTROPHILS 54.7 % (42.8-82.8); PLATELET COUNT 162 K/MM3 (134-434); RDW 12.6 % (11.6-15.6)
[2017-01-13 07:43] LABS: ALK PHOS 70 U/L (45-117); ANION GAP 5 (8-16); BILIRUBIN,TOTAL 0.4 mg/dL (0.2-1.0); CALCIUM 7.4 mg/dL (8.5-10.1); CO2 26 mmol/L (21-32); CREATININE 0.5 mg/dL (0.55-1.02); GLUCOSE,RANDOM 114 mg/dL (74-106); SGOT/AST 15 U/L (15-37); SGPT/ALT 36 U/L (12-78); TOT PROT 5.7 g/dl (6.4-8.2)
--- NOTE | 2017-01-13 12:37 | DS ---
Physical Examination Vital Signs: Vital Signs Temperature 97.1 F L 01/13/17 08:28 Pulse Rate 64 01/13/17 08:28 Respiratory Rate 20 01/13/17 08:28 Blood Pressure 107/61 01/13/17 08:28 O2 Sat by Pulse Oximetry (%) 100 01/13/17 08:23 Constitutional: Yes: No Distress, Calm Cardiovascular: Yes: Regular Rate and Rhythm Respiratory: Yes: CTA Bilaterally Gastrointestinal: Yes: Normal Bowel Sounds, Soft, Tenderness (left quadrant). No: Distention Edema: No Labs: CBC, BMP 01/13/17 06:30 01/13/17 06:30 Discharge Summary Reason For Visit: ULCERATIVE PANCOLITIS Current Active Problems Abdominal pain (Acute) Acute anxiety (Acute) Colitis (Acute) Diarrhea (Acute) Need for rapid response team assessment (Acute) Thrombocytopenia (Acute) Hospital Course: Admitted for abdominal pain and diarrhea She was seen by GI Received Levaquin two doses Had colonoscopy - patchy colitis GI recommmended ASACOL 400mg tid and HS follow up with DR Watts in 1 week stable for dc home Condition: Improved - Instructions Diet, Activity, Other Instructions: Pt is advised to stay home from work 01/14- 01/18. May return on 01/19/17 . She will need to follow up with Dr Watts in 1 week Referrals: Hilario Rodgers MD [Primary Care Provider] - Haroon Watts MD [Staff Physician] - 1 Week Disposition: HOME - Home Medications Comprehensive Discharge Medication List: Ambulatory Orders NK [No Known Home Medication] 01/09/17
[2017-01-13] MEDS ORDERED: MESALAMINE 800 MG TABLET.DR PO SCH ×2 (14:00→22:00)
[2017-01-13 15:42] VITALS: BP 133/58; PULSE 75; TEMP 99.3
--- NOTE | 2017-01-13 15:54 | PATH ---
Surgical Pathology Report Patient Name: MARTY CASTILLO [facility]. Rec. #: [id number] /Age/Gender: 1975 (Age: 41) / F Account: [id number] Location: [address] [place] [address]/[facility] Taken: 01/12/2017 Received: 01/12/2017 Reported: 01/13/2017 Physicians: Sol Coppola M.D. Specimen(s) Received A: BX TRANSVERSE COLON B: BX DESCENDING COLON C: BX SIGMOID COLON D: BX RECTUM Clinical History Diarrhea Patchy colitis Final Diagnosis A. TRANSVERSE COLON, BIOPSY: COLONIC MUCOSA WITH ACUTE INFLAMMATION AND CRYPTITIS. NO GRANULOMAS OR DYSPLASIA IDENTIFIED. B. DESCENDING COLON, BIOPSY: COLONIC MUCOSA WITH ACUTE INFLAMMATION AND CRYPTITIS. NO GRANULOMAS OR DYSPLASIA IDENTIFIED. C. SIGMOID COLON, BIOPSY: COLONIC MUCOSA WITH FOCAL ACUTE INFLAMMATION. NO GRANULOMAS OR DYSPLASIA IDENTIFIED. D. RECTUM, BIOPSY: COLONIC MUCOSA WITH PROMINENT LYMPHOID AGGREGATE. Comment: These findings are non-specific and may be seen in self-limited colitis. However, the possibility of early inflammatory bowel disease cannot be completely ruled out. Suggest clinical correlation. Electronically Signed Rhiannon Deluca M.D. Gross Description A. Received in formalin, labeled "biopsy transverse colon" are 4 hope, irregular portions of soft tissue ranging from 0.6-0.7 cm. in greatest dimension. The specimens are submitted in toto in one cassette. B. Received in formalin, labeled "biopsy descending colon" are 3 hope, irregular portions of soft tissue ranging from 0.1-0.5 cm. in greatest dimension. The specimens are submitted in toto in one cassette. C. Received in formalin, labeled "biopsy sigmoid colon" are 3 hope, irregular portions of soft tissue ranging from 0.1-0.6 cm. in greatest dimension. The specimens are submitted in toto in one cassette. D. Received in formalin, labeled "biopsy rectum" are 2 hope, irregular portions of soft tissue averaging 0.2 cm. in greatest dimension. The specimens are submitted in toto in one cassette. 01/12/2017 saudi01/12/2017
== END 2017-01-13 15:57 | disposition home or self-care (01) | DRG 392 ==
LOC: JER 14:09 → JERBED 20:44 → J5S 01-10 00:39
PROVIDERS: ADMIT Internal Medicine; ATTEND Internal Medicine
PROC: 0DBP8ZX Excision of Rectum, Via Natural or Artificial Opening Endoscopic, Diagnostic (ICD-10-PCS; 2017-01-12)
PROC: 0DBN8ZX Excision of Sigmoid Colon, Via Natural or Artificial Opening Endoscopic, Diagnostic (ICD-10-PCS; principal; 2017-01-12 09:00)
DX: K52.9 Noninfective gastroenteritis and colitis, unspecified (principal); F41.9 Anxiety disorder, unspecified; S05.11XA Contusion of eyeball and orbital tissues, right eye, initial encounter; W18.39XA Other fall on same level, initial encounter; Y93.89 Activity, other specified; Y92.098 Other place in other non-institutional residence as the place of occurrence of the external cause; D69.6 Thrombocytopenia, unspecified; K64.8 Other hemorrhoids
CPT/HCPCS: 36415; 70450-TC; 70551-TC; 71010-TC; 74174-TC; 74176-TC; 80048; 80053; 81003; 82330; 82550; 82803; 83605; 83735; 83874; 84484; 84703; 85025; 85027; 85610; 85651; 85730; 86038; 86140; 86850; 86900; 86901; 87040; 87045; 87046; 87086; 87324; 87449; 87804; 88305-TC; 93005; 93010; 99284-25; 99285-25